=== PATIENT | male | born 1960 | race Caucasian/White ===

== ENCOUNTER → 2017-01-27 | Outpatient (CLI) | payer BC ==
--- NOTE | 2017-01-27 09:19 | CT ---
EXAMINATION TYPE: CT soft tissue neck w con DATE OF EXAM: 01/27/2017 7:43 AM HISTORY: Lt neck nodule COMPARISON: NONE CT DLP: 375.8 mGycm. Automated Exposure Control for Dose Reduction was Utilized. TECHNIQUE: CT scan of the neck is performed with IV Contrast, patient injected with 100 mL of Omnipa que 300, axial images are obtained, coronal and sagittal reformatted images are reviewed. FINDINGS: Airway: No gross abnormality seen. Parotid/submandibular glands: The parotid and submandibular glands are symmetric without adjacent fat stranding or abnormal enhancement. There is a BB placed at the left neck at the site of palpable abn ormality with no suspicious finding deep to the palpable abnormality. The subcutaneous fat within thi s region is free of inflammatory fat stranding. The fascial plane is well preserved and nonthickened. The segment of the left gland and sternocleidomastoid muscle within this region are unremarkable. No cervical lymphadenopathy is seen. Carotid/Vascular Structures: Minimal atherosclerosis is seen of the left carotid bulb. No evidence of stenosis. Osseous Structures: Osseous structures are intact. Mild degenerative changes are seen of the visualiz ed cervical spine. Other: Moderate paraseptal and centrilobular emphysematous changes are seen within the lung apices wi th paraseptal blebs noted biapically. The thyroid gland is unremarkable. IMPRESSION: 1. No CT finding to correspond with the patient's palpable abnormality. No cervical lymphadenopathy. No mass is identified. 2. Moderate partially visualized centrilobular and paraseptal bullous emphysematous changes of the john ngs.
== END | disposition home or self-care (01) ==
LOC: RADCTMAIN 07:01
PROVIDERS: ATTEND Family Medicine
DX: R22.1 Localized swelling, mass and lump, neck (principal)
CPT/HCPCS: 70491; Q9967

== ENCOUNTER 2018-09-16 12:02 | Observation (INO) | payer BC ==
[2018-09-16] MEDS ORDERED: SODIUM CHLORIDE 0.9% 1,000 ML IV STA (12:34)
--- NOTE | 2018-09-16 12:37 | ED ---
General Adult HPI - General Chief complaint: GI Bleed Stated complaint: Blood in Stool Time Seen by Provider: 09/16/18 12:25 Source: patient, RN notes reviewed Mode of arrival: ambulatory Limitations: no limitations - History of Present Illness Initial comments: This is a 58-year-old male who presents emergency department stating that last night he had 1 episode of diarrhea and after that every time he had a bowel movement he was having blood per rectum. Patient states now it is only blood per rectum. Patient states he has had a colonoscopy but it was probably 15 years ago. Patient states he does have abdominal cramping but no specific area of pain. Patient denies any fever. Patient denies any nausea or vomiting. Patient denies any lightheadedness dizziness or near syncopal episode. Patient denies any previous episodes of similar. Patient denies chest pain difficulty breathing shortness of breath. Patient states he is not on any blood thinners. - Related Data Home Medications Medication Instructions Recorded Confirmed Ascorbic Acid [Vitamin C] 1,000 mg PO DAILY 09/16/18 09/16/18 Ibuprofen/Diphenhydramine Cit 1 tab PO HS 09/16/18 09/16/18 [Motrin Pm Caplet] Allergies Allergy/AdvReac Type Severity Reaction Status Date / Time No Known Allergies Allergy Verified 09/16/18 12:44 Review of Systems ROS Statement: Those systems with pertinent positive or pertinent negative responses have been documented in the HPI. ROS Other: All systems not noted in ROS Statement are negative. Past Medical History Past Medical History: No Reported History History of Any Multi-Drug Resistant Organisms: None Reported Past Surgical History: Back Surgery, Hernia Repair, Orthopedic Surgery Past Psychological History: No Psychological Hx Reported Smoking Status: Former smoker Past Alcohol Use History: Occasional Past Drug Use History: Marijuana General Exam - General Exam Comments Initial Comments: GENERAL: Patient is well-developed and well-nourished. Patient is nontoxic and well- hydrated and is in mild distress. ENT: Neck is soft and supple. No significant lymphadenopathy is noted. Oropharynx is clear. Moist mucous membranes. Neck has full range of motion without eliciting any pain. EYES: The sclera were anicteric and conjunctiva were pink and moist. Extraocular movements were intact and pupils were equal round and reactive to light. Eyelids were unremarkable. PULMONARY: Unlabored respirations. Good breath sounds bilaterally. No audible rales rhonchi or wheezing was noted. CARDIOVASCULAR: There is a regular rate and rhythm without any murmurs gallops or rubs. ABDOMEN: Soft and nontender with normal bowel sounds. SKIN: Skin is clear with no lesions or rashes and otherwise unremarkable. NEUROLOGIC: Patient is alert and oriented x3. Cranial nerves II through XII are grossly intact. Motor and sensory are also intact. Normal speech, volume and content. Symmetrical smile. MUSCULOSKELETAL: Normal extremities with adequate strength and full range of motion. No lower extremity swelling or edema. No calf tenderness. LYMPHATICS: No significant lymphadenopathy is noted PSYCHIATRIC: Normal psychiatric evaluation. Limitations: no limitations Course Vital Signs 09/16/18 12:23 Temperature 98.8 F Pulse Rate 79 Respiratory 18 Rate Blood Pressure 149/88 O2 Sat by Pulse 96 Oximetry Medical Decision Making - Medical Decision Making EKG shows normal sinus rhythm at 74 bpm DE interval 132 QRS is 92 QT interval 370 QTC is 419 per patient's EKG shows no ST segment elevation or depression or T wave abnormalities are noted. Patient continues to have some rectal bleeding. Patient's hemoglobin is stable. I spoke with Dr. Drake and he wanted the patient admitted admitted the patient I did serial CBCs and I consult to GI. - Lab Data Result diagrams: 09/16/18 12:51 09/16/18 12:51 Lab Results 09/16/18 09/16/18 09/16/18 Range/Units 12:51 12:51 12:51 WBC 8.3 (3.8-10.6) k/uL RBC 5.58 (4.30-5.90) m/uL Hgb 17.1 (13.0-17.5) gm/dL Hct 51.2 (39.0-53.0) % MCV 91.8 (80.0-100.0) fL MCH 30.7 (25.0-35.0) pg MCHC 33.5 (31.0-37.0) g/dL RDW 12.6 (11.5-15.5) % Plt Count 175 (150-450) k/uL Neutrophils % 85 % Lymphocytes % 5 % Monocytes % 6 % Eosinophils % 3 % Basophils % 0 % Neutrophils # 7.0 (1.3-7.7) k/uL Lymphocytes # 0.4 L (1.0-4.8) k/uL Monocytes # 0.5 (0-1.0) k/uL Eosinophils # 0.2 (0-0.7) k/uL Basophils # 0.0 (0-0.2) k/uL PT (9.0-12.0) sec INR (<1.2) APTT (22.0-30.0) sec Sodium 144 (137-145) mmol/L Potassium 4.7 (3.5-5.1) mmol/L Chloride 112 H (98-107) mmol/L Carbon Dioxide 23 (22-30) mmol/L Anion Gap 9 mmol/L BUN 22 H (9-20) mg/dL Creatinine 0.75 (0.66-1.25) mg/dL Est GFR (CKD-EPI)AfAm >90 (>60 ml/min/1.73 sqM) Est GFR (CKD-EPI)NonAf >90 (>60 ml/min/1.73 sqM) Glucose 88 (74-99) mg/dL Calcium 9.7 (8.4-10.2) mg/dL Magnesium 2.0 (1.6-2.3) mg/dL Total Bilirubin 0.6 (0.2-1.3) mg/dL AST 29 (17-59) U/L ALT 27 (21-72) U/L Alkaline Phosphatase 123 (38-126) U/L Total Creatine Kinase 47 L (55-170) U/L CK-MB (CK-2) 0.8 (0.0-2.4) ng/mL CK-MB (CK-2) Rel Index 1.7 Troponin I <0.012 (0.000-0.034) ng/mL Total Protein 7.2 (6.3-8.2) g/dL Albumin 4.5 (3.5-5.0) g/dL Blood Type Blood Type Recheck Antibody Screen Spec Expiration Date 09/16/18 09/16/18 Range/Units 12:51 12:51 WBC (3.8-10.6) k/uL RBC (4.30-5.90) m/uL Hgb (13.0-17.5) gm/dL Hct (39.0-53.0) % MCV (80.0-100.0) fL MCH (25.0-35.0) pg MCHC (31.0-37.0) g/dL RDW (11.5-15.5) % Plt Count (150-450) k/uL Neutrophils % % Lymphocytes % % Monocytes % % Eosinophils % % Basophils % % Neutrophils # (1.3-7.7) k/uL Lymphocytes # (1.0-4.8) k/uL Monocytes # (0-1.0) k/uL Eosinophils # (0-0.7) k/uL Basophils # (0-0.2) k/uL PT 10.0 (9.0-12.0) sec INR 0.9 (<1.2) APTT 25.5 (22.0-30.0) sec Sodium (137-145) mmol/L Potassium (3.5-5.1) mmol/L Chloride (98-107) mmol/L Carbon Dioxide (22-30) mmol/L Anion Gap mmol/L BUN (9-20) mg/dL Creatinine (0.66-1.25) mg/dL Est GFR (CKD-EPI)AfAm (>60 ml/min/1.73 sqM) Est GFR (CKD-EPI)NonAf (>60 ml/min/1.73 sqM) Glucose (74-99) mg/dL Calcium (8.4-10.2) mg/dL Magnesium (1.6-2.3) mg/dL Total Bilirubin (0.2-1.3) mg/dL AST (17-59) U/L ALT (21-72) U/L Alkaline Phosphatase (38-126) U/L Total Creatine Kinase (55-170) U/L CK-MB (CK-2) (0.0-2.4) ng/mL CK-MB (CK-2) Rel Index Troponin I (0.000-0.034) ng/mL Total Protein (6.3-8.2) g/dL Albumin (3.5-5.0) g/dL Blood Type B Positive Blood Type Recheck CABO Indicated Antibody Screen NEGATIVE Spec Expiration Date 09/19/2018 - 4754 Disposition Clinical Impression: Gastrointestinal hemorrhage Disposition: ADMITTED IP TO THIS HOSP Referrals: Fritz Uribe MD [Primary Care Provider] - 1-2 days Time of Disposition: 14:07
[2018-09-16 13:18] LABS: Basophils % (A) 0 %; Eosinophils # (A) 0.2 k/uL (0-0.7); Eosinophils % (A) 3 %; HCT 51.2 % (39.0-53.0); HGB 17.1 gm/dL (13.0-17.5); Lymphocytes # (A) 0.4 k/uL (1.0-4.8); Lymphocytes % (A) 5 %; MCH 30.7 pg (25.0-35.0); MCHC 33.5 g/dL (31.0-37.0); MCV 91.8 fL (80.0-100.0); Mean Platelet Volume 7.6; Monocytes # (A) 0.5 k/uL (0-1.0); Monocytes % (A) 6 %; Neutrophils % (A) 85 %; Platelet Count 175 k/uL (150-450); RBC 5.58 m/uL (4.30-5.90); RDW 12.6 % (11.5-15.5); WBC 8.3 k/uL (3.8-10.6)
[2018-09-16 13:30] LABS: ALT 27 U/L (21-72); AST 29 U/L (17-59); Albumin 4.5 g/dL (3.5-5.0); Alkaline Phosphatase 123 U/L (38-126); Anion Gap 9 mmol/L; Blood Urea Nitrogen 22 mg/dL (9-20); Calcium 9.7 mg/dL (8.4-10.2); Carbon Dioxide 23 mmol/L (22-30); Chloride 112 mmol/L (98-107); Glucose 88 mg/dL (74-99); INR 0.9 (<1.2); Partial Thromboplastin Time 25.5 sec (22.0-30.0); Sodium 144 mmol/L (137-145); Total Bilirubin 0.6 mg/dL (0.2-1.3); Total Protein 7.2 g/dL (6.3-8.2)
[2018-09-16 13:41] LABS: Creatine Kinase 47 U/L (55-170)
[2018-09-16 13:43] LABS: Potassium 4.7 mmol/L (3.5-5.1)
[2018-09-16 13:52] LABS: Creatine Kinase MB 0.8 ng/mL (0.0-2.4); Troponin I <0.012 ng/mL (0.000-0.034)
--- NOTE | 2018-09-16 14:03 | HP ---
HISTORY AND PHYSICAL CHIEF COMPLAINT: Crampy abdominal pain and bloody diarrhea. HISTORY OF PRESENT ILLNESS: This is the first admission for this 58-year-old white male. He has had a slight URI with a cough over the last 4 or 5 days. He then developed diarrhea and became more and more frequent and explosive and frankly bloody. He has some mild crampy lower abdominal pain. He has had no fever, chills, nausea, vomiting, etc. He has never had an episode like this before. He had a colonoscopy about 9 or 10 years ago. REVIEW OF SYSTEMS: He has had no syncope, difficulty with vision or hearing, chest pain, shortness of breath, palpitations, heart disease, hypertension, orthopnea, PND, ulcer disease, pancreatitis, gallbladder disease, renal disease, renal failure, hematuria, dysuria, frequency, urgency, diabetes, etc. Past medical history, family history, personal and social histories are essentially unremarkable. He has history of CA of the kidney. He is not on any medication, not allergic to any. Surgically he has had a laminectomy, an inguinal herniorrhaphy and a procedure on the finger which was amputated. He does not smoke. PHYSICAL EXAMINATION: Blood pressure is 135/78 with a pulse of 81, respirations 19. He is afebrile. In general, he appeared to be well developed, well nourished, in no acute distress. Skin color is normal. Skin is warm, dry. Lymph nodes not enlarged. Head, ears, eyes, nose, mouth, and throat were normal. Neck veins not distended. Thyroid not enlarged. Chest is clear. Cardiac exam is normal. Abdomen is soft, nontender without visceromegaly or masses. Bowel sounds present. Extremities normal. Neurologically he is intact. IMPRESSION: Bloody diarrhea. PLAN: 1. Bed rest. 2. IV fluids. 3. Monitor vital signs and gastrointestinal activity. 4. Gastroenterology consult. MMODL / IJN: [id number] /
[2018-09-16] MEDS ORDERED: SODIUM CHLORIDE 0.9% 1,000 ML IV ONE (14:07)
[2018-09-16 15:43] VITALS: BMI 22.4
[2018-09-16] MEDS: LEVOFLOXACIN 500MG-D5W PMX 500 MG in DEXTROSE/WATER 1 100ML.BAG IVPB SCH (16:54)
[2018-09-16] MEDS: metroNIDAZOLE-NS PMX 500 MG in SALINE 1 100ML.BAG IVPB SCH ×2 (16:58→23:28)
--- NOTE | 2018-09-16 23:13 | CONS ---
CONSULTATION DATE OF SERVICE: 09/16/2018 REQUESTING PHYSICIAN: Dr. Uribe. REASON FOR CONSULTATION: Acute bloody diarrhea of 1 day duration. HISTORY OF PRESENT ILLNESS: The patient is a 58-year-old pleasant white male with no significant past medical history, came to the emergency room with acute onset of diarrhea that started yesterday evening. He had about 4 or 5 loose watery bowel movements followed by multiple episodes of bright red blood per rectum. He had at least 10 episodes almost every hour with some cramping left lower quadrant abdominal pain and hence came to the emergency room and subsequently admitted to the hospital for further evaluation. He never had these symptoms in the past. Denies any recent travel history. Denies any recent antibiotic use. He just had a cough and cold for 2 weeks, which he recovered uneventfully. His last colonoscopy was about 12 years ago. In the ER, he had routine labs done which showed a hemoglobin of 17.1. PAST MEDICAL HISTORY: Unremarkable. PAST SURGICAL HISTORY: Inguinal herniorrhaphy and colonoscopy about 12 years ago. SOCIAL HISTORY: No smoking. No alcohol use. FAMILY HISTORY: Unremarkable. MEDICATIONS: At home none. ALLERGIES: No known drug allergies. REVIEW OF SYSTEMS: Cardiopulmonary: No chest pain, shortness of breath. Genitourinary: No dysuria or hematuria. Musculoskeletal: Unremarkable. Skin unremarkable. Endocrine unremarkable. Psychiatric unremarkable. Neurology unremarkable. ENT vision unremarkable. Constitutional: No recent weight loss. No fever, chills, night sweats. PHYSICAL EXAMINATION: He appears comfortable. No apparent distress. VITAL SIGNS: Stable. Blood pressure is 148/88, pulse is 79, temperature 98. HEENT examination unremarkable. Conjunctivae pink. Sclerae anicteric. Oral cavity no lesions. Neck no JVD or lymph node enlargement. Chest was clear to auscultation. HEART: Regular rate and rhythm. ABDOMEN: Soft. Bowel sounds are positive. No organomegaly. Extremities: No pedal edema. Skin no rashes. NEUROLOGIC: Alert and oriented x3. No focal deficits. Labs done at the time of admission to the hospital showed WBC of 8.3, hemoglobin 7.1, platelets of 175. Basic metabolic panel is within normal limits. PT/INR is normal. IMPRESSION: Acute onset of bloody diarrhea of 1 day duration with some lower abdominal cramping. No recent travel history. The clinical symptomatology is very consistent with infectious colitis. Doubt ischemic colitis. Hemoglobin stable at 17.5 g/dL. RECOMMENDATIONS: 1. Clear liquid diet. 2. Stool cultures and C diff toxin. 3. Empiric antibiotics with IV Levaquin and Flagyl. 4. Repeat labs in the morning. 5. Based on his clinical course, further recommendations will be made. I did mention to the patient, if symptoms improve, he can be discharged home in 1-2 days followed by an outpatient colonoscopy in a week. Thank you for this consultation. CATRACHITA / ILA: [id number] /
[2018-09-17] MEDS: metroNIDAZOLE-NS PMX 500 MG in SALINE 1 100ML.BAG IVPB SCH ×4 (05:16→23:17)
[2018-09-17 07:52] LABS: Basophils % (A) 0 %; Eosinophils # (A) 0.2 k/uL (0-0.7); Eosinophils % (A) 2 %; HCT 44.9 % (39.0-53.0); HGB 15.3 gm/dL (13.0-17.5); Lymphocytes # (A) 0.6 k/uL (1.0-4.8); Lymphocytes % (A) 9 %; MCH 31.3 pg (25.0-35.0); MCHC 34.1 g/dL (31.0-37.0); MCV 91.9 fL (80.0-100.0); Mean Platelet Volume 7.7; Monocytes # (A) 0.5 k/uL (0-1.0); Monocytes % (A) 7 %; Neutrophils # (A) 5.6 k/uL (1.3-7.7); Neutrophils % (A) 80 %; Platelet Count 155 k/uL (150-450); RBC 4.89 m/uL (4.30-5.90); RDW 12.5 % (11.5-15.5)
[2018-09-17 08:19] LABS: ALT 28 U/L (21-72); AST 20 U/L (17-59); Albumin 3.7 g/dL (3.5-5.0); Alkaline Phosphatase 87 U/L (38-126); Anion Gap 8 mmol/L; Blood Urea Nitrogen 14 mg/dL (9-20); Calcium 8.7 mg/dL (8.4-10.2); Carbon Dioxide 24 mmol/L (22-30); Chloride 109 mmol/L (98-107); Glucose 86 mg/dL (74-99); Potassium 4.2 mmol/L (3.5-5.1); Sodium 141 mmol/L (137-145); Total Bilirubin 0.7 mg/dL (0.2-1.3)
[2018-09-17] MEDS: LEVOFLOXACIN 500MG-D5W PMX 500 MG in DEXTROSE/WATER 1 100ML.BAG IVPB SCH (09:04)
[2018-09-17] MEDS: ACETAMINOPHEN TAB 325 MG TAB PO PRN ×3 (09:05→19:29)
--- NOTE | 2018-09-17 10:10 | PN ---
PROGRESS NOTE DATE OF SERVICE: 09/17/2018 Patient is a 58-year-old pleasant white male admitted to the hospital with acute onset of bloody diarrhea for one day prior to hospitalization and multiple episodes of bright red blood per rectum yesterday, but this morning he is feeling much better. He does not have any abdominal pain. The bleeding has significantly reduced. Through the night he had only 2 bowel movements, the last one was about an hour ago with scant amount of blood. No nausea, no vomiting. Complains of sinus headache and nasal congestion. PHYSICAL EXAMINATION: On physical examination, appears comfortable, in no apparent distress. Vital signs are stable. Blood pressure 156/88, pulse rate 66, temperature 98.2. HEENT examination unremarkable. Conjunctivae pink. Sclerae anicteric. Oral cavity no lesions. NECK: No JVD or lymph node enlargement. CHEST: Clear to auscultation. HEART: Regular rate and rhythm. ABDOMEN: Soft. Bowel sounds are present. It was nontender, nondistended. Minimal tenderness in the left lower quadrant area. EXTREMITIES: No pedal edema. SKIN: No rashes. NEURO: Alert and oriented x3. No focal deficits. LABS: WBC 7, hemoglobin 15.3, platelets are normal. Basic metabolic panel is within normal limits. C diff is negative. Cultures are still pending. IMPRESSION: Acute bloody diarrhea of 2 days duration. Most likely infectious etiology, cannot rule out ischemic etiology. Patient on empiric antibiotics and doing much better. Symptoms are gradually improving. Bleeding is resolving. RECOMMENDATIONS: 1. Advance diet as tolerated. 2. Repeat CBC in the morning. 3. If he is doing well, he can be discharged home tomorrow with an outpatient followup in a couple of weeks and we will consider a colonoscopy on outpatient basis. Thank you for this consultation. MMODL / IJN: [id number] /
--- NOTE | 2018-09-17 18:04 | PN ---
PROGRESS NOTE CHIEF COMPLAINT: Lower GI bleed. HISTORY OF PRESENT ILLNESS: This gentleman is doing well and he has had no further episodes of bleeding. His hemoglobin remained stable and he is at 15.3. He is not having any fever, chills, abdominal pain, etc. PHYSICAL EXAM: Color is good. Chest is clear. Cardiac exam is normal. The abdomen is soft and nontender. It is flat. IMPRESSION: Hematochezia, likely due either to diverticulosis or viral colitis. PLAN: Patient will be kept in the hospital one more day and probably be discharged tomorrow if he remains stable. He should undergo colostomy at a later date. Blood pressure is running a little high at 161/89. MMODL / IJN: [id number] /
[2018-09-17] MEDS ORDERED: ONDANSETRON 4 MG/2 ML VIAL IVP PRN (21:03)
[2018-09-17] MEDS: LORATADINE-PSEUDOEPH 5-120 MG 1 EACH TAB.ER.12H PO SCH (21:45)
[2018-09-18] MEDS: ACETAMINOPHEN TAB 325 MG TAB PO PRN (04:38)
[2018-09-18] MEDS: metroNIDAZOLE-NS PMX 500 MG in SALINE 1 100ML.BAG IVPB SCH (06:20)
[2018-09-18 06:30] VITALS: BP 154/93; PULSE 63; RESP 17; TEMP 97.7
[2018-09-18 07:08] LABS: Basophils % (A) 0 %; Eosinophils # (A) 0.3 k/uL (0-0.7); Eosinophils % (A) 5 %; HCT 45.7 % (39.0-53.0); Lymphocytes # (A) 0.5 k/uL (1.0-4.8); Lymphocytes % (A) 8 %; MCH 29.8 pg (25.0-35.0); MCHC 32.9 g/dL (31.0-37.0); MCV 90.6 fL (80.0-100.0); Mean Platelet Volume 6.9; Monocytes # (A) 0.4 k/uL (0-1.0); Monocytes % (A) 6 %; Neutrophils # (A) 5.2 k/uL (1.3-7.7); Neutrophils % (A) 79 %; Platelet Count 166 k/uL (150-450); RBC 5.04 m/uL (4.30-5.90); RDW 12.3 % (11.5-15.5); WBC 6.6 k/uL (3.8-10.6)
[2018-09-18] MEDS: LORATADINE-PSEUDOEPH 5-120 MG 1 EACH TAB.ER.12H PO SCH (08:33)
[2018-09-18] MEDS: LEVOFLOXACIN 500MG-D5W PMX 500 MG in DEXTROSE/WATER 1 100ML.BAG IVPB SCH (08:33)
--- NOTE | 2018-09-18 12:15 | PN ---
PROGRESS NOTE DATE OF SERVICE: 09/18/2018. REQUESTING PHYSICIAN: Dr. Uribe. HISTORY: The patient is a 14-year-old pleasant white male admitted to the hospital with acute onset of bloody diarrhea of 1 day duration. He was started empirically on antibiotics and he is doing much better. Abdominal pain has resolved. The bleeding has completely subsided. On a regular diet, tolerating well. No new complaints today. PHYSICAL EXAMINATION: He appears comfortable. No apparent distress. Vital signs are stable. Blood pressure is 172/85, pulse 86, temperature 98.8. HEENT: Unremarkable. Conjunctivae pink. Sclerae anicteric. Oral cavity no lesions. NECK: No JVD or lymph node enlargement. CHEST: Clear to auscultation. HEART: Regular rate and rhythm. ABDOMEN: Soft. Bowel sounds are positive. No organomegaly. EXTREMITIES: No pedal edema. SKIN: No rashes. NEUROLOGIC: Alert and oriented x3. No focal deficits. LABS: From today, CBC is within normal limits. Hemoglobin 15. IMPRESSION: Acute bloody diarrhea, most likely infectious etiology; cannot rule out ischemic etiology. On empiric antibiotics, doing well. Symptoms resolved. Abdominal pain and bleeding has resolved. Hemoglobin stable. RECOMMENDATIONS: 1. Regular diet. 2. Discharge home today with an outpatient follow up in 2 weeks, at which time we will consider a colonoscopy. The plan was discussed with the patient. He is agreeable to it. Thank you for this consultation. MIREYAL / MENDEZN: [id number] /
[2018-09-18] MEDS ORDERED: metroNIDAZOLE 500 MG TAB PO SCH (16:00)
[2018-09-19] MEDS ORDERED: LEVOFLOXACIN 500 MG TAB PO SCH (09:00)
--- NOTE | 2018-09-19 18:16 | DS ---
DISCHARGE SUMMARY DATE OF DISCHARGE: 09/18/2018 CHIEF COMPLAINT: GI bleed. HISTORY OF PRESENT ILLNESS: This gentleman is doing well. He has had no further bleeding. He was cleared by Gastroenterology. He will go home and have an endoscopy at a later date. Past medical history, family history and personal and social histories are all unchanged. COURSE IN THE HOSPITAL: After admission, he was placed on IV fluids. He had no further bleeding. He was doing well and it was felt that he could be discharged on September 18. He will go home on light activity and diet and follow up in the office. FINAL DIAGNOSIS: Lower gastrointestinal hemorrhage, probably either from colitis or diverticulosis. OPERATIONS: None. CONSULTATIONS: Gastroenterology. He is improved. MMODL / IJN: [id number] /
[2018-09-21 03:57] LABS: Cryptosporidium parvum Not detected (Not detected); Isospora belli Not detected (Not detected); Microsporidium Not detected (Not detected); Routine Ova and Parasites Not detected; White Cells Not detected (Not detected)
== END 2018-09-18 12:08 | disposition home or self-care (01) ==
LOC: EC 12:02 → 3NMEDONC 14:26
PROVIDERS: ADMIT Family Medicine; ATTEND Family Medicine
DX: K62.5 Hemorrhage of anus and rectum (principal); R10.32 Left lower quadrant pain; R19.7 Diarrhea, unspecified; R51 Headache; R09.81 Nasal congestion; Z79.899 Other long term (current) drug therapy; Z87.891 Personal history of nicotine dependence; Z85.528 Personal history of other malignant neoplasm of kidney; Z89.029 Acquired absence of unspecified finger(s)
CPT/HCPCS: 96361 ×3; 96365; 96366 ×3; 96367; 96375; 96368; 99285; 36415; 93005; 86900; 86901; 80053 ×2; 82550; 82553; 83735; 84484; 85025 ×3; 85610; 85730; 86850; 87324; 87177; 87207; 87209; 87045; 83630; 87046; G0378 ×3; J2405; J1956 ×3

== ENCOUNTER → 2018-10-19 | Day surgery (SDC) | payer BC ==
[2018-10-18 09:13] VITALS: BMI 22.4
[~2018-10-19] MED LIST: LACTATED RINGERS 1,000 ML IV SCH; LIDOCAINE 1% 20 ML VIAL (10MG/ML) FOR IV START INTRADERMA ONE; LIDOCAINE 1% INJ 10MG/ML (20 ML MDV) ONE; PROPOFOL 10 MG/ML 20 ML VIAL IV ONE
[2018-10-19 10:31] VITALS: TEMP 97
--- NOTE | 2018-10-19 11:59 | P.PCN ---
Date of Procedure: 10/19/18 Procedure(s) Performed: BRIEF HISTORY: Patient is a 58-year-old pleasant male, scheduled for an elective colonoscopy as a part of evaluation of change in bowel habits and intermittent rectal bleeding. PROCEDURE PERFORMED: Colonoscopy with snare polypectomy. PREOPERATIVE DIAGNOSIS: Change in bowel habits and intermittent rectal bleeding. IV sedation per Anesthesia. PROCEDURE: After informed consent was obtained, the patient, was brought into the endoscopy unit. IV sedation was administered by Anesthesia under continuous monitoring. Digital rectal examination was normal. Initially the Olympus CF- 160 flexible video colonoscope was then inserted in the rectum, gradually advanced into the cecum without any difficulty. Careful examination was performed as the scope was gradually being withdrawn. Ileocecal valve and the appendiceal orifice were visualized and appeared normal. Prep was excellent. Mucosa of the cecum, ascending colon, transverse colon, appeared normal. In the descending colon there was a 5 mm sessile polyp removed by snare polypectomy. Rest of the descending colon, sigmoid colon, and rectum appeared normal. Retroflexion was performed in the rectum and small internal hemorrhoids were seen. The patient tolerated the procedure well. IMPRESSION: 5 mm sessile ascending colon polyp status post post-polypectomy Rest of the colon appeared normal Small internal hemorrhoids RECOMMENDATIONS: Findings of this examination were discussed with the patient as his family. He was advised to follow with the biopsy results. If the biopsy shows adenoma he can have a repeat colonoscopy in 5.
[2018-10-19 12:23] VITALS: BP 107/66; PULSE 77; RESP 17
== END | disposition home or self-care (01) ==
LOC: ORWHC2ENDO 10:06
PROVIDERS: ATTEND Internal Medicine Gastroenterology
DX: D12.4 Benign neoplasm of descending colon (principal); K64.8 Other hemorrhoids; K92.2 Gastrointestinal hemorrhage, unspecified; Z79.899 Other long term (current) drug therapy; Z87.891 Personal history of nicotine dependence
CPT/HCPCS: 88305; 45385; J2001; J2704

== ENCOUNTER → 2019-07-03 | Outpatient (CLI) | payer OTHER ==
--- NOTE | 2019-07-03 14:22 | XR ---
EXAMINATION TYPE: XR tibia fibula LT DATE OF EXAM: 07/03/2019 COMPARISON: NONE HISTORY: Pain TECHNIQUE: Two views are submitted. FINDINGS: The osseous structures are intact. The joint spaces are preserved. IMPRESSION: 1. No acute osseous abnormality.
== END | disposition home or self-care (01) ==
LOC: RADXRMAIN 13:21
PROVIDERS: ATTEND Emergency Medicine
DX: S80.12XA Contusion of left lower leg, initial encounter (principal); S81.802A Unspecified open wound, left lower leg, initial encounter